=== PATIENT | female | born 1980 | race Caucasian/White ===

== ENCOUNTER 2016-06-09 09:24 | Emergency (ER) | payer OTHER ==
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
--- NOTE | 2016-06-09 10:18 | XR ---
EXAMINATION TYPE: XR knee complete RT DATE OF EXAM: 06/09/2016 10:09 AM COMPARISON: NONE HISTORY: Pain FINDINGS: Mild narrowing of the medial compartment of the knee joint.. Osseous structures are intact. No acut e fracture seen. IMPRESSION: 1. No acute fracture or dislocation.
[2016-06-09 11:00] VITALS: BP 117/59; PULSE 71; RESP 16; TEMP 97.7
== END 2016-06-09 11:00 | disposition home or self-care (01) ==
LOC: EC 09:24
DX: S80.01XA Contusion of right knee, initial encounter (principal); V89.2XXA Person injured in unspecified motor-vehicle accident, traffic, initial encounter
CPT/HCPCS: 99283

== ENCOUNTER 2018-06-24 14:32 | Emergency (ER) | payer OTHER ==
[2018-06-24 14:51] VITALS: TEMP 97.7
[2018-06-24] MEDS ORDERED: HYDROcodone/APAP 5-325MG 1 EACH TAB PO STA (15:25)
--- NOTE | 2018-06-24 15:27 | ED ---
General Adult HPI - General Chief complaint: Extremity Problem,Nontraumatic Stated complaint: Swollen foot Time Seen by Provider: 06/24/18 14:55 Source: patient Mode of arrival: ambulatory Limitations: no limitations - Related Data Home Medications Medication Instructions Recorded Confirmed Aspirin/Acetaminophen/Caffeine 2 tab PO Q6H PRN 06/24/18 06/24/18 [Excedrin Extra Strength Caplet] Previous Rx's Medication Instructions Recorded Cephalexin [Keflex] 500 mg PO Q6HR 5 Days #20 cap 06/24/18 HYDROcodone/APAP 5-325MG [Adrian 1 tab PO Q6HR PRN 3 Days #12 tab 06/24/18 5-325] Allergies Allergy/AdvReac Type Severity Reaction Status Date / Time No Known Allergies Allergy Verified 06/24/18 15:11 Review of Systems ROS Statement: Those systems with pertinent positive or pertinent negative responses have been documented in the HPI. ROS Other: All systems not noted in ROS Statement are negative. Past Medical History Additional Past Medical History / Comment(s): IBS History of Any Multi-Drug Resistant Organisms: None Reported Past Surgical History: Orthopedic Surgery, Tonsillectomy Additional Past Surgical History / Comment(s): RIGHT KNEE SURGERY, right foot surgery Past Psychological History: No Psychological Hx Reported Smoking Status: Never smoker Past Alcohol Use History: Rare Past Drug Use History: None Reported - Past Family History dad Family Medical History: Hyperlipidemia General Exam Limitations: no limitations Course Vital Signs 06/24/18 14:48 Temperature 97.7 F Pulse Rate 84 Respiratory 18 Rate Blood Pressure 125/82 O2 Sat by Pulse 99 Oximetry Medical Decision Making - Medical Decision Making Dictation was produced using spotdock dictation software. please excuse any grammatical, word or spelling errors. Chief Complaint: 38-year-old female presents with right ankle pain. History of Present Illness: She is a 38-year-old female with right ankle pain. She states that her symptoms have been progressively worsening over the last 2- 3 days. Patient is has history of surgery to the right ankle performed by Dr. Ferguson. This surgery was performed in 2016. 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 Denies any fever, chills or night sweats. She reports significant tenderness to the lateral ankle to the dorsum of the foot. The ROS documented in this emergency department record has been reviewed and confirmed by me. Those systems with pertinent positive or negative responses have been documented in the HPI. All other systems are other negative and/or noncontributory. PHYSICAL EXAM: General Impression: Alert and oriented x3, not in acute distress HEENT: Normocephalic atraumatic, extra-ocular movements intact, pupils equal and reactive to light bilaterally, mucous membranes moist. Cardiovascular: Heart regular rate and rhythm, S1&S2 audible, no murmurs, rubs or gallops Chest: Lungs clear to auscultation bilaterally, no rhonchi, no wheeze, no rales Abdomen: Bowel sounds present, abdomen soft, non-tender, non-distended, no organomegaly Musculoskeletal: Pulses present and equal in all extremities, swelling of the right lateral malleolus. Tenderness to palpation of the same area. No warmth or erythema. There is a scab over the distal fibula. Motor: Power 5/5 bilaterally, no focal deficits noted Neurological: CN II-XII grossly intact, no focal motor or sensory deficits noted Skin: Intact with no visualized rashes Psych: Normal affect and mood ED course: 38-year-old female presents with ankle pain. She has history of surgery to that area. Vital signs upon arrival are within acceptable limits. X -ray shows soft tissue swelling. No bony compromise. Discussed patient case with Dr. Cleary. Agreeable with patient received Keflex and following up outpatient. This point it is not clear patient's symptoms are secondary to infection. Still to follow-up Dr. Ferguson for outpatient management of symptoms. Disposition Clinical Impression: Ankle pain Disposition: HOME SELF-CARE Condition: Good Instructions (If sedation given, give patient instructions): Swollen Joint (ED) Prescriptions: Cephalexin [Keflex] 500 mg PO Q6HR 5 Days #20 cap HYDROcodone/APAP 5-325MG [Adrian 5-325] 1 tab PO Q6HR PRN 3 Days #12 tab PRN Reason: Severe Pain Is patient prescribed a controlled substance at d/c from ED?: Yes If prescribed controlled substance>3 days was MAPS reviewed?: Prescribed <3 Days Referrals: None,Stated [Primary Care Provider] - 1-2 days Time of Disposition: 16:59
--- NOTE | 2018-06-24 16:01 | XR ---
Right ankle HISTORY: Pain and swelling 3 views of the right ankle Postop changes are noted to the distal fibula and medial malleolus. There is soft tissue swelling pre sent. Alignment is maintained. Small plantar calcaneal spur noted. IMPRESSION: Soft tissue swelling, correlate for infection. Postop changes.
[2018-06-24 17:08] VITALS: BP 135/78; PULSE 64; RESP 16
== END 2018-06-24 17:04 | disposition home or self-care (01) ==
LOC: EC 14:32
DX: M25.571 Pain in right ankle and joints of right foot (principal); M79.89 Other specified soft tissue disorders; Z98.890 Other specified postprocedural states
CPT/HCPCS: 99283

== ENCOUNTER → 2018-07-24 | Outpatient (CLI) | payer OTHER ==
[2018-07-24 09:13] LABS: HCT 38.9 % (34.0-46.0); HGB 12.8 gm/dL (11.4-16.0); MCH 27.1 pg (25.0-35.0); MCV 82.2 fL (80.0-100.0); Mean Platelet Volume 7.5; Platelet Count 318 k/uL (150-450); RBC 4.73 m/uL (3.80-5.40); RDW 14.4 % (11.5-15.5); WBC 8.3 k/uL (3.8-10.6)
--- NOTE | 2018-07-24 09:23 | CT ---
EXAMINATION TYPE: CT ankle RT wo con DATE OF EXAM: 07/24/2018 COMPARISON: Radiographs 06/24/2018 HISTORY: 38-year-old female Right ankle pain and swelling post op. TECHNIQUE: Contiguous axial scanning of the right ankle without IV contrast. Coronal and sagittal rec onstructions performed. 3-D reconstructions generated on a dedicated independent workstation. CT DLP: 233.7 mGycm Automated exposure control for dose reduction was used. FINDINGS: Diffuse soft tissue swelling persists along the ankle. No significant tibiotalar joint effusion seen. Sideplate and screw fixation of the distal fibula. The fracture here appears healed. No theresa osteoly sis is seen. There is mild periostitis along the distal fibular shaft probably reflecting healing lg nge. There is syndesmotic widening and medial clear space widening as well. 2 screw fixation of the medial malleolus which appears largely healed. There is some eccentric medial tibiotalar joint space narrow ing.. 7 smooth cortical irregularity along the posterior malleolus could represent prior healing change. Subtalar joint is aligned. Small posterior and plantar calcaneal spurs. With delineation to the Achil les tendon. IMPRESSION: 1. BIMALLEOLAR ANKLE FIXATIONS APPEAR LARGELY HEALED. HOWEVER, NOTE THAT THERE IS WIDENING OF THE SYN DESMOSIS. CLINICALLY CORRELATE TO IF FURTHER SURGICAL MANAGEMENT IS INDICATED. 2. SUSPECT SOME UNDERLYING POSTTRAUMATIC TIBIOTALAR JOINT OSTEOARTHROSIS GIVEN ECCENTRIC JOINT SPACE NARROWING ALONG THE MEDIAL TIBIOTALAR JOINT. 3. MARKED DIFFUSE SOFT TISSUE SWELLING. THE ORTHOPEDIC HARDWARE APPEARS INTACT WITHOUT ANY OSTEOLYSIS /BONY DESTRUCTION.
[2018-07-24 13:09] LABS: Erythrocyte Sedimentation Rate 14 mm/hr (0-20)
--- NOTE | 2018-07-24 13:19 | US ---
EXAMINATION TYPE: US venous doppler duplex LE RT DATE OF EXAM: 07/24/2018 9:20 AM COMPARISON: NONE CLINICAL HISTORY: M25.571 RIGHT ANKLE PAIN. Post right ankle fracture repair with screws and plates 2 016; patient c/o skin redness and ankle swelling x 2 months with increasing symptoms since then; part ial incision dehiscence noted SIDE PERFORMED: Right TECHNIQUE: The lower extremity deep venous system is examined utilizing real time linear array sonog brodie with graded compression, doppler sonography and color-flow sonography. VESSELS IMAGED: Common Femoral Vein Deep Femoral Vein Greater Saphenous Vein * Femoral Vein Popliteal Vein Small Saphenous Vein * Proximal Calf Veins (* superficial vessels) There is normal flow, compressibility, vascular waveforms. Right Leg: Negative for DVT; negative for SVT as assessed; fluid channels are seen lateral, medial, and inferolateral at patient's c/o redness and dehisced incision. Superolateral mixed fluid area = 7. 7 x 2.9 x 0.3cm. At the level of the ankle joint edema channels are noted. IMPRESSION: No evident deep venous thrombosis at or above the right knee. Ankle edema
== END | disposition home or self-care (01) ==
LOC: RADCTMAIN 07:38
PROVIDERS: ATTEND Orthopaedic Surgery
DX: M79.89 Other specified soft tissue disorders (principal); R60.0 Localized edema; I80.9 Phlebitis and thrombophlebitis of unspecified site; M25.571 Pain in right ankle and joints of right foot; S82.841A Displaced bimalleolar fracture of right lower leg, initial encounter for closed fracture; B99.9 Unspecified infectious disease; Z98.890 Other specified postprocedural states
CPT/HCPCS: 36415; 83520; 85027; 85652; 86140

== ENCOUNTER → 2019-02-19 | Outpatient (CLI) | payer OTHER ==
--- NOTE | 2019-02-19 10:42 | US ---
EXAMINATION TYPE: US venous doppler duplex LE RT DATE OF EXAM: 02/19/2019 10:35 AM COMPARISON: US CLINICAL HISTORY: 38-year-old female I80.9 Phlebitis and thrombophlebitis of unspecified. Pt having r ight ankle swelling/ pt had fracture and surgery right ankle in July 2018, swelling not going away SIDE PERFORMED: Right TECHNIQUE: The lower extremity deep venous system is examined utilizing real time linear array sonog brodie with graded compression, doppler sonography and color-flow sonography. FINDINGS: VESSELS IMAGED: External Iliac Vein (EIV) Common Femoral Vein Deep Femoral Vein Greater Saphenous Vein * Femoral Vein Popliteal Vein Small Saphenous Vein * Proximal Calf Veins Posterior tibial veins (* superficial vessels) Right Leg: Negative for DVT, Right PTV not visualized due to edema IMPRESSION: No evidence for DVT within the right lower extremity imaged from the groin to the upper calf. Posteri or tibial veins not adequately evaluated due to the degree of soft tissue swelling.
== END | disposition home or self-care (01) ==
LOC: RADUSWWP 10:17
PROVIDERS: ATTEND Orthopaedic Surgery
DX: M79.89 Other specified soft tissue disorders (principal); M25.571 Pain in right ankle and joints of right foot; S82.841D Displaced bimalleolar fracture of right lower leg, subsequent encounter for closed fracture with routine healing; B99.9 Unspecified infectious disease; Z48.89 Encounter for other specified surgical aftercare